=== PATIENT | male | born 1990 | race Caucasian/White ===

== ENCOUNTER 2023-07-06 17:11 | Emergency (ER) | payer OTHER ==
[~2023-07-06] VITALS: Ht 177.8 cm; Wt 54.4 kg
[~2023-07-06 17:11] MED LIST: OXYACE5T PO
[2023-07-06 17:19] VITALS: BP 110/75
[2023-07-06] MEDS ORDERED: Buprenorphine HCL/Naloxone HCL 8MG-2MG Tab SL ONE (17:25)
[2023-07-06] MEDS ORDERED: NS 1,000 ML IV SCH (17:45)
[2023-07-06] MEDS ORDERED: Ondansetron HCl 2 MG / ML 2ML Vial IV ONE (17:45)
[2023-07-06] MEDS ORDERED: RX Prepack 2 Tabs Ondansetron ODT 4MG UD ONE (19:20)
== END 2023-07-06 19:47 | disposition home or self-care (01) ==
LOC: ER 17:11
DX: F11.19 Opioid abuse with unspecified opioid-induced disorder (principal); E86.0 Dehydration; Z88.0 Allergy status to penicillin
CPT/HCPCS: 96361; 96374; 99284-25; A9270; J2405; J7030

== ENCOUNTER 2023-07-10 06:04 | Inpatient (IN) | payer OTHER ==
[~2023-07-10] VITALS: Ht 170.2 cm; Wt 38.6 kg
[2023-07-10] MEDS ORDERED: Naloxone HCl 1MG / ML 2ML SYR ONE (06:08)
[2023-07-10] MEDS ORDERED: Dextrose 50% 50 ML Syringe ONE ×2 (06:09→06:13)
[2023-07-10] MEDS ORDERED: NS IV SCH (06:50)
[2023-07-10] MEDS ORDERED: FENTANYL CITRATE IV SCH (06:50)
[2023-07-10] MEDS ORDERED: NS 1,000 ML IV SCH ×2 (07:00→09:15)
[2023-07-10 07:03] LABS: PCO2 Arterial 24.9 mmHg (35-45); PO2 Arterial 167 mmHg (80-100); pH Blood Arterial 7.47 (7.35-7.45)
[2023-07-10 07:08] LABS: Hematocrit 28.3 % (37.0-53.0); Hemoglobin 9.2 g/dL (13.5-17.5); Mean Corpuscular HGB 28.4 pg (26.0-34.0); Mean Corpuscular HGB Conc 32.5 g/dL (31.5-36.5); Mean Corpuscular Volume 87 fL (80-100); Mean Platelet Volume 9.7 fL (9.1-12.4); Platelet Count 280 K/mm3 (150-400); RDW Coefficient Variation 17.2 % (11.7-14.2); RDW Standard Deviation 50.7 fL (35.1-46.3); Red Blood Cell Count 3.24 M/mm3 (4.30-5.90); White Blood Cell Count 12.03 K/mm3 (4.00-11.30)
[2023-07-10 07:28] LABS: BAND PERCENT MAN 4 % (0-8); BASOPHILS PERCENT MAN 0 % (0-2); EOSINOPHILS PERCENT MAN 0 % (0-6); LYMPHOCYTES ABSOLUTE MAN 0.96 K/mm3 (0.84-5.20); LYMPHOCYTES PERCENT MAN 8 % (21-46); METAMYELOCYTE ABSOLUTE MAN 0.24 K/mm3 (0.00-0.00); METAMYELOCYTE PERCENT MAN 2 % (0-0); MONOCYTES ABSOLUTE MAN 0.84 K/mm3 (0.16-1.47); MONOCYTES PERCENT MAN 7 % (4-13); NEUTROPHILS ABSOLUTE MAN 9.98 K/mm3 (1.96-9.15); SEG NEUTROPHILS PERCENT MAN 79 % (41-73); TOTAL CELLS COUNTED 100
[2023-07-10 07:28] LABS: Source, Urine Straight Cath
[2023-07-10 07:34] LABS: Bilirubin, Urine Neg (Neg); Blood, Urine 3+ (Neg); Color, Urine Yellow (P-Yellow); Glucose Qualitative, Urine Neg (Neg); Ketones, Urine Neg (Neg); Leukocyte Esterase, Urine Neg (Neg); Nitrite, Urine Neg (Neg); Protein, Urine 1+ (Neg); Specific Gravity, Urine 1.025 (1.003-1.022); Urobilinogen, Urine 1+ (Normal)
[2023-07-10 07:44] LABS: Amorphous Light (0-Heavy); Bacteria Rare /hpf; Hyaline Casts 25-50 /lpf (0-2); Squamous Epithelial Cells Few /hpf (Few)
[2023-07-10 07:45] LABS: Appearance, Urine Clear (Clear)
[2023-07-10] MEDS ORDERED: Dextrose 10% 500 ML IV SCH (07:45)
[2023-07-10 07:52] LABS: Albumin, Blood 1.6 g/dL (3.4-5.0); Albumin/Globulin Ratio 0.3 (0.8-1.8); Bilirubin, Total 1.3 mg/dL (0.1-1.0); Bun/Creatinine Ratio 102.4 (12.0-20.0); Calcium, Blood 6.8 mg/dL (8.5-10.1); Creatinine, Blood 0.86 mg/dL (0.60-1.20); Globulin, Blood 6.2 g/dL (2.2-4.0); Total Protein, Blood 7.8 g/dL (6.4-8.2)
[2023-07-10] MEDS ORDERED: Ipratropium/Albuterol SulF 2.5-0.5MG/3 ML Amp INH ONE (07:55)
[2023-07-10] MEDS ORDERED: Albuterol 2.5 MG/3 ML VIAL INH ONE (07:55)
[2023-07-10] MEDS ORDERED: Clindamycin 600mg in D5W 50 ML IV ONE (08:05)
[2023-07-10] MEDS ORDERED: propofoL 100 ML IV SCH (08:05)
[2023-07-10 08:28] LABS: U Amphetamine Screen DETECTED; U Methamphetamine Screen DETECTED
[2023-07-10 08:29] LABS: U Barbituate Screen Not Detected; U Benzodiazapine Screen Not Detected; U Buprenorphine Screen DETECTED; U Cannabinoids Screen Not Detected; U Cocaine Screen Not Detected; U Methadone Screen Not Detected; U Opiates Screen Not Detected; U Oxycodone Screen Not Detected; U Phencyclidine Screen Not Detected
[2023-07-10] MEDS ORDERED: FLU VACC QS2023-24(6MOS UP)/PF 60 MCG/0.5 ML SYRINGE IM SCH (09:10)
[2023-07-10] MEDS ORDERED: Magnesium Hydroxide Conc 10 ML UDC PO PRN (09:10)
[2023-07-10] MEDS ORDERED: Naloxone HCl 0.4MG / ML 1ML Vial IV PRN (09:10)
[2023-07-10 10:18] VITALS: BP 89/72
[2023-07-10 10:30] VITALS: BP 100/78
[2023-07-10 10:57] VITALS: BP 92/71
[2023-07-10 11:00] VITALS: BP 36/20
[2023-07-10] MEDS ORDERED: Dextrose 50% 50 ML Syringe IV ONE ×2 (11:15→14:19)
--- NOTE | 2023-07-10 11:30 | NUR ---
ADMISSION/CODE: Pt admitted to ICU 13 from ED at 1008. Upon arrival to the unit, pt was intubated and alert to stimulation. He intially opened eyes, tracked RN, and appeared to weakly localize ETT with upper extremities. ETT 7.5 24 cm at gum. Fentanyl was placed on stanby to obtain complete neuro assessment. Dextrose was paused to obtain line patency and check a blood glucose. Pt pale, dusky, and mottled with thready pulses on arrival. Initial skin assessment revealed wound to right hip; See photos in chart. At 1103 RN witnessed a rhythm change from NSR to wide complex vtach. Pulse not palpated and code blue called. This RN immediatly initiated CPR. See code blue documentation in chart. TOJ Luis called at 1122 with pt's mother at bedside accompanied by palliative care.
--- NOTE | 2023-07-10 13:22 | NUR ---
Upon responding to a Code Blue, I met patient's mother, Avril, in the hallway outside of patient's room. Avril is showing extreme emotions and begging to go into patient's room saying, "Please let me say goodbye to him before he dies." Once we get approval Avril goes into the patient's room and she holds pt's hand and speaks to him until she finally calls for the team to stop heroic measures. We pause to honor the efforts made and the life that the patient lived. I then read Psalm 91 that Avril requested to have read, and provide grief support, prayer and a calming presence. Avril showed signs of being comforted.
[2023-07-10] MEDS ORDERED: Amiodarone HCl 50 MG / ML 3 ML Amp IV ONE (14:19)
[2023-07-10] MEDS ORDERED: Calcium Chloride 10% 10 ML SYR IV ONE (14:19)
[2023-07-10] MEDS ORDERED: Naloxone HCl 1MG / ML 2ML SYR XX ONE (14:19)
[2023-07-10] MEDS ORDERED: Sodium Bicarb 8.4% 50 mEq Syringe IV ONE (14:19)
[2023-07-10] MEDS ORDERED: EPINEPhrine HCl 0.1 MG/ML 10ML SYR XX ONE (14:19)
--- NOTE | 2023-07-10 14:21 | NUR ---
This RN was present with mother of patient. Stood by to assist, provided support before and after code was ended. Pt , but family was thankful for the care. Condolences given.
[2023-07-10] MEDS ORDERED: Lactobacil 2-S.Thermo-Bifido 1 1 Cap PO SCH (21:00)
[2023-07-11] MEDS ORDERED: Enoxaparin 40 MG/0.4 ML SYR SC SCH (09:00)
[2023-07-11] MEDS ORDERED: Enoxaparin 30 MG/0.3 ML SYR SC SCH (09:00)
[2023-07-11 21:28] LABS: SERUM, C-PEPTIDE <0.1 ng/mL (0.5-3.3)
[2023-07-12 11:20] LABS: HEPATITIS A ANTIBODY, IGM Negative (Negative); HEPATITIS B CORE ANTIBODY, IGM Negative (Negative); HEPATITIS B SURFACE ANTIGEN Negative (Negative); HEPATITIS C AB CIA INTERP Negative (Negative); HEPATITIS C ANTIBODY CIA INDEX 0.26 IV
[2023-07-12 13:50] LABS: HIV-1 QNT BY NAAT INTERP Detected (Not Detected); HIV-1 QNT NAAT (LOG COPIES/ML) 5.94
[2023-07-13 05:57] LABS: HIV SEROLOGIC INTERPRETATION Pos HIV-1 Ab; HIV-1 ANTIBODY Positive (Negative); HIV-2 ANTIBODY Negative (Negative)
[2023-07-13 05:58] LABS: HIV 1,2 COMBO ANTIGEN/ANTIBODY Reactive (Negative)
== END 2023-07-10 11:22 | DRG 208 ==
LOC: ER 06:04 → ICUE 09:08
PROVIDERS: Emergency Medicine; Internal Medicine Critical Care Medicine; ADMIT Internal Medicine
PROC: 5A1935Z Respiratory Ventilation, Less than 24 Consecutive Hours (ICD-10-PCS; principal; 2023-07-10)
PROC: 0BH17EZ Insertion of Endotracheal Airway into Trachea, Via Natural or Artificial Opening (ICD-10-PCS; 2023-07-10)
PROC: 4A033R1 Measurement of Arterial Saturation, Peripheral, Percutaneous Approach (ICD-10-PCS; 2023-07-10)
PROC: 3E033XZ Introduction of Vasopressor into Peripheral Vein, Percutaneous Approach (ICD-10-PCS; 2023-07-10)
PROC: 5A12012 Performance of Cardiac Output, Single, Manual (ICD-10-PCS; 2023-07-10)
PROC: 5A2204Z Restoration of Cardiac Rhythm, Single (ICD-10-PCS; 2023-07-10)
PROC: 0T9B70Z Drainage of Bladder with Drainage Device, Via Natural or Artificial Opening (ICD-10-PCS; 2023-07-10)
DX: J96.00 Acute respiratory failure, unspecified whether with hypoxia or hypercapnia (principal); G92.8 Other toxic encephalopathy; E43 Unspecified severe protein-calorie malnutrition; B37.0 Candidal stomatitis; R64 Cachexia; Z68.1 Body mass index [BMI] 19.9 or less, adult; M62.82 Rhabdomyolysis; Z59.00 Homelessness unspecified; I47.20 Ventricular tachycardia, unspecified; I46.9 Cardiac arrest, cause unspecified; E16.2 Hypoglycemia, unspecified; D64.9 Anemia, unspecified; E86.0 Dehydration; K08.89 Other specified disorders of teeth and supporting structures; F11.90 Opioid use, unspecified, uncomplicated; F15.90 Other stimulant use, unspecified, uncomplicated; R73.9 Hyperglycemia, unspecified; Z88.0 Allergy status to penicillin; Z78.1 Physical restraint status
CPT/HCPCS: 31500; 36415; 36600; 51702; 71045; 80053; 80074; 81001; 82105; 82550; 82803; 82947; 83605; 84681; 85025; 93005; 93010; 94002; 94640; 94664; 96361-59; 96365-59; 96366-59; 96375-59; 99291-25; 99292; J0282; J2310; J2704; J3010; J7030; J7050